=== PATIENT | female | born 1990 | race Caucasian/White ===

== ENCOUNTER 2021-08-31 07:13 | Inpatient (IN) | payer BC ==
[2021-08-31 07:47] VITALS: BMI 24.4
[2021-08-31] MEDS ORDERED: Promethazine HCl 25 MG/ML VIAL IM PRN (08:13)
[2021-08-31] MEDS ORDERED: Methylergonovine 0.2 MG/ML VIAL IM PRN (08:13)
[2021-08-31] MEDS ORDERED: Acetaminophen 500 MG TAB PO PRN (08:13)
[2021-08-31] MEDS ORDERED: Butorphanol Tartrate 1 MG/ML VIAL SLOW IVP PRN (08:13)
[2021-08-31] MEDS ORDERED: Ibuprofen 800 MG TAB PO PRN (08:13)
[2021-08-31] MEDS ORDERED: Ondansetron PF 4 MG/2 ML Vial IVP PRN (08:13)
[2021-08-31] MEDS ORDERED: Lidocaine 1% (PF) 30 ML VIAL SC PRN (08:13)
[2021-08-31] MEDS ORDERED: Diphenoxylate HCl/Atropine Tablet PO PRN (08:13)
[2021-08-31] MEDS ORDERED: Carboprost 250 MCG/ML AMP IM PRN (08:13)
[2021-08-31] MEDS ORDERED: hydrALAZINE 20 MG/ML VIAL SLOW IVP PRN (08:13)
[2021-08-31] MEDS ORDERED: Misoprostol 200 MCG TAB PR PRN (08:13)
[2021-08-31] MEDS ORDERED: HYDROcodone/Acetaminophen 5/325 mg Tablet PO PRN ×2 (08:13)
[2021-08-31] MEDS ORDERED: Lactated Ringer's 1,000 ML IV SCH (08:15)
[2021-08-31] MEDS ORDERED: NS w/ Oxytocin 30 units 500 ML IV SCH ×2 (08:15)
[2021-08-31] MEDS ORDERED: Penicillin G Potassium 5 MILL.UNITS in Sodium Chloride 0.9% 100 ML IVPB SCH (08:15)
[2021-08-31 08:38] LABS: Hemoglobin 13.9 g/dL (12.0-15.5); Mean Corpuscular HGB CONC 34.9 g/dL (32.0-36.0); Mean Corpuscular Hemoglobin 31.2 pg (27.0-33.0); Mean Corpuscular Volume 89.4 fl (81.6-98.3); Mean Platelet Volume 12.1 fl (7.4-10.4); Platelet Count 198 10x3/uL (150-450); RBC Distribution Width 13.6 % (11.5-14.5); Red Blood Cell (RBC) Count 4.45 10x6/uL (3.90-5.03); White Blood Cell (WBC) Count 6.8 10x3/uL (3.5-10.5)
[2021-08-31 09:13] LABS: Hep B Surf Ag Non-Reactive S/CO (NonReactive)
[2021-08-31 09:14] LABS: Syphilis Antibody Nonreactive (Nonreactive); Syphilis Antibody Index 0.02 S/CO (<1.00 Non-Reactive)
[2021-08-31 09:44] LABS: SARS-CoV-2 NAA Rapid Test Not Detected (NotDetected)
[2021-08-31 09:51] LABS: HBSAg Index 0.17 S/CO (0-0.99)
[2021-08-31] MEDS: Penicillin G 2.5 MILL.units 2.5 MILL.UNITS in Premix Bag 1 BAG IVPB SCH ×2 (14:38→18:29)
[2021-09-01] MEDS: Penicillin G 2.5 MILL.units 2.5 MILL.UNITS in Premix Bag 1 BAG IVPB SCH ×2 (03:27→07:12)
[2021-09-01] MEDS ORDERED: Lidocaine 1% (PF) 30 ML VIAL ONE (06:00)
[2021-09-01] MEDS ORDERED: Fentanyl 2 mcg/Bup 0.1% Cadd 100 ML ONE (06:46)
[2021-09-01] MEDS ORDERED: ePHEDrine Sulfate 50 MG/10 ML VIAL SLOW IVP PRN (07:26)
[2021-09-01] MEDS ORDERED: Moisturizing Cream (Eucerin) 113 GM JAR TOP PRN (07:26)
[2021-09-01] MEDS ORDERED: diphenhydrAMINE 50 MG/ML VIAL IVP PRN (07:26)
[2021-09-01] MEDS ORDERED: Lactated Ringer's 500 ML IV PRN (07:26)
[2021-09-01] MEDS ORDERED: Ondansetron PF 4 MG/2 ML Vial IVP PRN ×2 (07:26→17:18)
[2021-09-01] MEDS ORDERED: Naloxone HCl 0.4 mg/ml Vial IVP PRN ×2 (07:26)
[2021-09-01] MEDS ORDERED: Promethazine HCl 25 MG/ML VIAL IM PRN (07:26)
[2021-09-01] MEDS ORDERED: Acetaminophen 325 MG TAB PO PRN (07:26)
[2021-09-01] MEDS ORDERED: Communication Order-Pharmacy FS SCH (07:30)
[2021-09-01] MEDS ORDERED: Fentanyl 2 mcg/Bupivacaine 0.1% Cassette 100 ML EPIDURAL SCH (07:30)
[2021-09-01 14:39] LABS: pH (Cord, venous) 7.409 (7.250-7.350)
[2021-09-01] MEDS ORDERED: Benzocaine-Menthol 82.5 ML CAN TOP PRN (17:18)
[2021-09-01] MEDS ORDERED: Boostrix 0.5 ML (Tdap) VIAL IM ONE (17:18)
[2021-09-01] MEDS ORDERED: NS w/ Oxytocin 30 units 500 ML IV SCH (17:18)
[2021-09-01] MEDS ORDERED: HYDROcodone/Acetaminophen 5/325 mg Tablet PO PRN ×2 (17:18)
[2021-09-01] MEDS ORDERED: hydrALAZINE 20 MG/ML VIAL SLOW IVP PRN (17:18)
[2021-09-01] MEDS ORDERED: Bisacodyl 10 MG SUPP PR PRN (17:18)
[2021-09-01] MEDS ORDERED: Lanolin Ointment 7 GM TUBE TOP PRN (17:18)
[2021-09-01] MEDS ORDERED: Methylergonovine 0.2 MG/ML VIAL IM PRN (17:18)
[2021-09-01] MEDS ORDERED: Misoprostol 200 MCG TAB VAG PRN (17:18)
[2021-09-01] MEDS ORDERED: Milk Of Magnesia 30 ML UDCUP PO PRN (17:18)
[2021-09-01] MEDS ORDERED: Ferrous Sulfate 325 MG TAB PO SCH (18:30)
[2021-09-01] MEDS: Docusate 100 MG CAP PO SCH (21:37)
[2021-09-01] MEDS: Ibuprofen 800 MG TAB PO SCH (21:37)
[2021-09-02] MEDS: Ibuprofen 800 MG TAB PO SCH ×3 (05:46→21:29)
[2021-09-02] MEDS: Prenatal Vitamin 1 TAB PO SCH (09:05)
[2021-09-02] MEDS: Docusate 100 MG CAP PO SCH ×2 (09:05→21:29)
[2021-09-02] MEDS: Ferrous Sulfate 325 MG TAB PO SCH ×2 (09:06→13:31)
[2021-09-02] MEDS: Penicillin G 2.5 MILL.units 2.5 MILL.UNITS in Premix Bag 1 BAG IVPB SCH (11:07)
[2021-09-02] MEDS ORDERED: Acetaminophen 500 MG TAB PO PRN (12:45)
[2021-09-03] MEDS: Ibuprofen 800 MG TAB PO SCH ×2 (05:08→14:00)
[2021-09-03 07:33] VITALS: BP 125/73; TEMP 97.9
[2021-09-03] MEDS: Ferrous Sulfate 325 MG TAB PO SCH (08:02)
[2021-09-03] MEDS: Prenatal Vitamin 1 TAB PO SCH (09:15)
[2021-09-03] MEDS: Docusate 100 MG CAP PO SCH (09:15)
== END 2021-09-03 18:40 | disposition home or self-care (01) | DRG 807 ==
LOC: CSHLD/OP 07:13 → CSHLD 08:25 → CSHPED 09-01 17:45
PROVIDERS: ADMIT Obstetrics & Gynecology; ATTEND Obstetrics & Gynecology
PROC: 10E0XZZ Delivery of Products of Conception, External Approach (ICD-10-PCS; principal; 2021-09-01)
PROC: 0UQMXZZ Repair Vulva, External Approach (ICD-10-PCS; 2021-09-01)
PROC: 10H07YZ Insertion of Other Device into Products of Conception, Via Natural or Artificial Opening (ICD-10-PCS; 2021-09-01)
DX: O42.02 Full-term premature rupture of membranes, onset of labor within 24 hours of rupture (principal); Z37.0 Single live birth; Z20.822 Contact with and (suspected) exposure to COVID-19; Z3A.40 40 weeks gestation of pregnancy; O99.824 Streptococcus B carrier state complicating childbirth; Z88.1 Allergy status to other antibiotic agents; Z88.2 Allergy status to sulfonamides; M41.9 Scoliosis, unspecified; O99.892 Other specified diseases and conditions complicating childbirth; O70.0 First degree perineal laceration during delivery; O32.8XX0 Maternal care for other malpresentation of fetus, not applicable or unspecified
CPT/HCPCS: 36415; 82805; 85027; 86780; 86850; 86900; 86901; 87340; J2540; J2590; J3490; U0002